=== PATIENT | male | born 1995 | race African-American/Black ===

== ENCOUNTER 2016-09-09 11:23 | Emergency (ER) | payer OTHER ==
[2016-09-09 11:33] VITALS: BP 140/93
[2016-09-09] MEDS ORDERED: DIPH/PERTUSS(ACELL)/TETANUS VAC/PF 0.5 ML SYR (>=10YO) IM ONE (12:12)
--- NOTE | 2016-09-09 12:16 | ER Document Report ---
ED GI/ - General Chief Complaint: Penile Problem Stated Complaint: GENITAL INJURY Mode of Arrival: Ambulatory Information source: Patient TRAVEL OUTSIDE OF THE [place] IN LAST 30 DAYS: No - HPI Patient complains to provider of: Other - Penis pain Notes: 09/09/16 12:11 Patient states that his dog jumped up onto him and a nail scratched his penis. He states that he had shorts on when this happened, but that the dog's nails were sharp and caused a scratch at the rim of the head of his penis. This happened 3 days ago. Yesterday he states that it was red swollen tender with drainage. He states that today is actually significantly better but still somewhat sore. Had no pain with urination. No penile discharge. He denies any abdominal pain. No nausea vomiting diarrhea. No rash or fever. Her last tetanus was. He denies any other complaints at this time. He states that things seem to be significantly better today. No testicular pain or injury. - Related Data Allergies/Adverse Reactions: No Known Allergies Allergy (Verified 09/09/16 11:30) Past Medical History - Social History Smoking Status: Unknown if Ever Smoked Family History: Reviewed & Not Pertinent Patient has suicidal ideation: No Patient has homicidal ideation: No Renal/ Medical History: Denies: Hx Peritoneal Dialysis Review of Systems - Review of Systems -: Yes All other systems reviewed and negative Physical Exam - Vital signs Vitals: Temp Pulse Resp BP Pulse Ox 98.5 F 62 16 140/93 H 98 09/09/16 11:32 09/09/16 11:32 09/09/16 11:32 09/09/16 11:32 09/09/16 11:32 - Notes Notes: GENERAL: alert, cooperative, nontoxic, no distress. HEAD: normocephalic, atraumatic EYES: conjunctiva pink without discharge, no external redness or swelling. EARS: no external swelling, no external redness NOSE: atraumatic, no external swelling MOUTH/THROAT: mucous membranes moist and pink NECK: soft, supple, full range of motion, no meningismus. CHEST: no distress, lungs clear and equal throughout. No wheezing, rales, rhonchi. CARDIAC: regular rate and rhythm, no murmur, normal capillary refill, normal pulses. BACK: full range of motion, no CVA tenderness. EXTREMITIES: full range of motion of all extremities. No redness, no swelling. NEURO: alert and oriented 3, no focal deficits, full range of motion of all extremities. PYSCH: appropriate mood, affect. Patient is cooperative. SKIN: pink, warm, dry, no rash. : Patient is uncircumcised. When he pulls his foreskin back he has an area just below the head of the penis that is slightly red and swollen. There is no significant tenderness. No laceration. No drainage. He has no penile discharge. No other rashes. He has no testicular tenderness or mass. Course - Re-evaluation Re-evalutation: 09/09/16 12:14 Patient is nontoxic. Stable vitals. The patient states that his dog jumped up on him and actually scratched his penis with their nail 3 days ago. Yesterday it was swollen and red and draining. Today it seems to be significantly better but is still somewhat sore. His small abrasion noted in this area. No significant redness or drainage. No sign of abscess. This point we'll discharge him home with topical antibiotics. His tetanus will be updated. Follow-up for increased pain, fever, redness, drainage, any further concerns. The patient is noted to have elevated blood pressure during today's emergency department visit. The patient was informed of this finding. The patient was instructed that this may be related to pre-hypertension and requires further evaluation with a primary care provider. The patient has no hypertensive symptoms at this time. The patient's emergency department workup and current diagnosis were explained to the patient and or family. Follow-up instructions were provided. Medications if prescribed were discussed. Instructions for when to return to the emergency department including specific worrisome symptoms were discussed with the patient and/or family. - Vital Signs Vital signs: Temp Pulse Resp BP Pulse Ox 98.5 F 62 16 140/93 H 98 09/09/16 11:32 09/09/16 11:32 09/09/16 11:32 09/09/16 11:32 09/09/16 11:32 Discharge - Discharge Clinical Impression: Abrasion of penis Condition: Stable Disposition: HOME, SELF-CARE Instructions: Abrasions ([facility]) Additional Instructions: Keep area clean and dry. Apply ointment as directed. Follow-up for increased pain, fever, redness, drainage, any further concerns. Your blood pressure was elevated during today's visit. Have this rechecked with your doctor. Prescriptions: Mupirocin [Bactroban 2% Ointment 22 gm] 1 applic TP TID #1 tube
== END 2016-09-09 12:22 | disposition home or self-care (01) ==
LOC: ER 11:23
DX: S30.812A Abrasion of penis, initial encounter (principal); W54.1XXA Struck by dog, initial encounter; Y92.009 Unspecified place in unspecified non-institutional (private) residence as the place of occurrence of the external cause; Z23 Encounter for immunization
CPT/HCPCS: 90471; 90715; 99283